=== PATIENT | female | born 1940 | race Caucasian/White ===

== ENCOUNTER → 2018-07-20 | Outpatient (CLI) | payer OTHER ==
[~2018-07-20] MED LIST: ACYCLOVIR 200200 MG; ACYCLOVIR 200200 MG PO; ADULT LOW DOSE81 MG PO; AMARYL2 MG PO; AMLODIPINE BESYL5 MG PO; ATENOLOL 25 MG25 M1 PO; ATIVAN0.5 MG PO; BIOTIN2500 MCG PO; CARVEDILOL12.5 MG PO; CARVEDILOL6.25 MG PO; COZAAR 50 MG TA50 M2 PO; DICLOFENAC SODI75 MG PO; FLEXERIL PO; GLUCOPHAGE500 MG PO; HYDROCODONE-AP1 EAC6 PO; Iron PO; KLOR-CON 1010 MEQ PO; LASIX 20 MG TAB20 MG PO; LASIX 40 MG TAB40 M2 PO; LEVEMIR SUBQ; LEVOTHROID75 MCG PO; LEVOTHYROXINE 0.1 MG PO; LEVOTHYROXINE0.05 MG PO; LIPITOR40 MG PO; METFORMIN HCL500 MG PO; PIOGLITAZONE15 MG PO; PRAVACHOL40 MG PO; PRAVASTATIN SOD40 MG PO; PROBIOTIC1 EAC1 PO; ULTRAM 50MG TAB50 MG; VITAMIN B-12500 MCG PO; VITAMIN D1000 UNI1 PO; VITAMIN E1000 UNIT PO; Vitamin B-12 PO; Vitamin D3 PO; diclofenac PO
== END ==
LOC: M.RAD 13:14
DX: Z12.31 Encounter for screening mammogram for malignant neoplasm of breast (principal)

== ENCOUNTER → 2019-02-24 | Outpatient (CLI) | payer OTHER | LOC: M.LAB 04:33 | PROVIDERS: Student in an Organized Health Care Education/Training Program | DX: E87.6 Hypokalemia (principal); E11.9 Type 2 diabetes mellitus without complications ==

== ENCOUNTER 2019-04-09 22:25 | Emergency (ER) | payer OTHER ==
[~2019-04-09] VITALS: Ht 165.1 cm; Wt 68.0 kg
[2019-04-09] MEDS ORDERED: SYNTHROID75 MCG PO (22:43)
[2019-04-09] MEDS ORDERED: TRAMADOL 50 MG50 MG PO (22:44)
[2019-04-09] MEDS ORDERED: AMARYL2 MG PO (22:45)
[2019-04-09] MEDS ORDERED: KLOR-CON 1010 MEQ PO (22:45)
[2019-04-09] MEDS ORDERED: ACYCLOVIR 400400 MG PO (22:46)
[2019-04-09 23:18] LABS: ABSOLUTE BASOPHILS 0.1 thou/uL (0.0-0.2); ABSOLUTE EOSINOPHILS 0.1 thou/uL (0.0-0.7); ABSOLUTE LYMPHOCYTES 1.8 thou/uL (0.8-5.3); ABSOLUTE MONOCYTES 0.6 thou/uL (0.0-1.2); ABSOLUTE NEUTROPHILS 3.8 thou/uL (1.6-8.1); BASOPHILS 1.5 %; EOSINOPHILS 2.3 %; HEMATOCRIT 33.5 % (37.0-47.0); HEMOGLOBIN 11.5 gm/dL (12.0-15.0); LYMPHOCYTES 28.4 %; MCHC 34.2 g/dL (28.0-37.0); MCV 93.7 fL (80.0-100.0); MONOCYTES 8.9 %; MPV 9.8 fl. (7.2-11.1); NUCLEATED RBCS 0 /100WBC; PLATELET COUNT* 193 thou/uL (150-400); POLYS 58.9 %; RBC 3.58 mil/uL (4.20-5.00); RDW-CV 12.2 % (10.5-14.5); WBC 6.4 thou/uL (4.0-11.0)
[2019-04-09 23:27] LABS: ANION GAP 9 mmol/L (7-16); BUN 46 mg/dL (7-18); CALCIUM 9.1 mg/dL (8.5-10.1); CHLORIDE 104 mmol/L (98-107); CO2 27 mmol/L (21-32); CREATININE 1.9 mg/dL (0.6-1.3); GLUCOSE 101 mg/dL (70-99); POTASSIUM 4.8 mmol/L (3.5-5.1); SODIUM 140 mmol/L (136-145)
[2019-04-09 23:28] LABS: INR 1.1; PROTIME 10.9 Seconds (9.20-11.50)
[2019-04-09 23:37] LABS: ALBUMIN 3.6 g/dL (3.4-5.0); ALKALINE PHOSPHATASE 80 U/L (46-116); NT-PRO BRAIN NAT PEPTIDE 3878 pg/mL (<300); SGOT 19 U/L (15-37); SGPT 25 U/L (30-65); TOTAL BILIRUBIN 0.4 mg/dL (<0.1-1.0); TOTAL PROTEIN 6.9 g/dL (6.4-8.2); TROPONIN-I LEVEL <0.06 ng/mL (<0.06)
[2019-04-09 23:57] LABS: URINE BILIRUBIN NEGATIVE (Negative); URINE BLOOD NEGATIVE (Negative); URINE CLARITY CLEAR; URINE COLOR YELLOW; URINE GLUCOSE-RANDOM NEGATIVE (Negative); URINE KETONES NEGATIVE (Negative); URINE LEUKOCYTES-REFLEX 1+ (Negative); URINE NITRITE-REFLEX NEGATIVE (Negative); URINE PROTEIN NEGATIVE (Negative); URINE UROBILINOGEN 0.2 E.U./dl (0.2-1.0)
[2019-04-10 00:03] LABS: CASTS None Seen /LPF (None Seen); CRYSTALS None Seen /LPF (None Seen); MUCUS 0-3 Light strn/LPF (None Seen); SQUAMOUS 0-3 Few /LPF (0-3); TRANSITIONAL EPITHEL CELL 0-3 Few /LPF (None Seen); URINE RBC 0-2 Rare /HPF (0-2); WBC CLUMPS Few (None Seen)
[2019-04-10] MEDS ORDERED: CLONIDINE0.1 PO (00:43)
[2019-04-10] MEDS ORDERED: BACTRIM DS TAB1 EACH PO (00:53)
[2019-04-10 00:55] VITALS: BP 170/77
--- NOTE | 2019-04-11 12:25 | EKG ---
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 : 1940 Requested By: Rupal Up Order Number: [id number] MD: Randall Solares Measurements Intervals [place] Rate: 59 P: AK: QRS: -14 QRSD: 135 T: 88 QT: 441 QTc: 437 Interpretive Statements sinus rhythm with first degree block Left bundle branch block Baseline wander in lead(s) V3,V4,V5 Compared to ECG 07/17/2015 15:04:53 Left bundle-branch block now present Myocardial infarct finding no longer present Electronically Signed On 04-11-2019 12:25:28 CDT by Randall Solares [email or web address] <ELECTRONICALLY SIGNED> By: Randall Solares MD, [facility] 04/11/19 1225 2240 2240 Randall Solares MD, [facility] /EPI
== END 2019-04-10 00:56 | disposition home or self-care (01) ==
LOC: M.ERS 22:25
PROVIDERS: Emergency Medicine
DX: I10 Essential (primary) hypertension (principal); N39.0 Urinary tract infection, site not specified; E11.9 Type 2 diabetes mellitus without complications; M79.7 Fibromyalgia; M46.90 Unspecified inflammatory spondylopathy, site unspecified; E78.00 Pure hypercholesterolemia, unspecified; Z90.12 Acquired absence of left breast and nipple; Z91.041 Radiographic dye allergy status; Z88.8 Allergy status to other drugs, medicaments and biological substances

== ENCOUNTER → 2019-07-01 | Outpatient (CLI) | payer OTHER ==
[~2019-07-01] MED LIST changes: +ACYCLOVIR 400400 MG PO; +BACTRIM DS TAB1 EACH PO; +CLONIDINE0.1 PO; +SYNTHROID75 MCG PO; +TRAMADOL 50 MG50 MG PO
== END ==
LOC: M.ULTRA 10:53
DX: I12.9 Hypertensive chronic kidney disease with stage 1 through stage 4 chronic kidney disease, or unspecified chronic kidney disease (principal); N18.4 Chronic kidney disease, stage 4 (severe); E11.22 Type 2 diabetes mellitus with diabetic chronic kidney disease; Z79.4 Long term (current) use of insulin

== ENCOUNTER → 2019-07-05 | Outpatient (CLI) | payer OTHER ==
[2019-07-05 13:40] LABS: ALBUMIN 3.5 g/dL (3.4-5.0); CALCIUM 8.6 mg/dL (8.5-10.1); CREATININE 1.8 mg/dL (0.6-1.3); POTASSIUM 4.8 mmol/L (3.5-5.1); TOTAL BILIRUBIN 0.5 mg/dL (<0.1-1.0); TOTAL PROTEIN 6.7 g/dL (6.4-8.2)
[2019-07-08 10:14] LABS: ANA INTERPRETATION Negative (Negative); COMPLEMENT-C4 14 mg/dL (14-44); GLOMERULR BASEM MEMBRN AB 3 units (0-20); GLYCOHEMOGLOBIN (HGB A1C) 7.4 % (4.8-5.6); HEPATITIS B SURFACE AG Negative (Negative)
[2019-07-08 10:14] LABS: CREATININE CLEARANCE 0 mL/min (88-128); URINE CREATININE 37.1 mg/dL (Not Estab.); URINE CREATININE (GM/24H) 1 mg/24 hr (800-1800)
[2019-07-08 19:10] LABS: URINE PROTEIN 0 mg/24 hr (30-150); URINE PROTEIN (MG/DL) 5.2 mg/dL (Not Estab.)
[2019-07-08 19:10] LABS: GLOBULIN TOTAL 2.8 g/dL (2.2-3.9); M-SPIKE Not Observed g/dL (Not Observed)
== END ==
LOC: M.LAB 12:55
PROVIDERS: Internal Medicine Nephrology
DX: I25.10 Atherosclerotic heart disease of native coronary artery without angina pectoris (principal); I12.9 Hypertensive chronic kidney disease with stage 1 through stage 4 chronic kidney disease, or unspecified chronic kidney disease; N18.4 Chronic kidney disease, stage 4 (severe)

== ENCOUNTER → 2019-08-09 | Outpatient (CLI) | payer OTHER | LOC: M.RAD 14:17 | DX: Z12.31 Encounter for screening mammogram for malignant neoplasm of breast (principal) ==

== ENCOUNTER → 2020-08-01 | Outpatient (CLI) | payer MEDICARE | LOC: M.RAD 12:32 | PROVIDERS: ATTEND Internal Medicine | DX: Z12.31 Encounter for screening mammogram for malignant neoplasm of breast (principal) ==

== ENCOUNTER → 2021-07-12 | Outpatient (CLI) | payer OTHER | LOC: M.RAD 10:56 | PROVIDERS: ATTEND Registered Nurse | DX: Z12.31 Encounter for screening mammogram for malignant neoplasm of breast (principal); I48.19 Other persistent atrial fibrillation; N64.89 Other specified disorders of breast; J84.10 Pulmonary fibrosis, unspecified; J98.4 Other disorders of lung ==

== ENCOUNTER → 2021-07-31 | Outpatient (CLI) | payer OTHER ==
--- NOTE | 2021-07-31 17:21 | 2DMMODE ---
[place] [address] 2 D/M-MODE ECHOCARDIOGRAM Name: AALIYAH TRAYLOR Room: [facility]#: [id number] Admission: 07/31/21 Attend Phys: Nany Perez RN Discharge: Date of : 40 Date of Service: 07/31/21 1721 Report #: [id number] THIS REPORT FOR: cc: Emmy Meyers Angela Jo RNP Liston, Michael J. MD [facility] ~ APPROVED REPORT Study performed: 07/31/2021 10:24:47 EXAM: Comprehensive 2D, Doppler, and color-flow Echocardiogram Patient Location: Out-Patient BSA: 1.75 HR: 64 bpm BP: 126/70 mmHg Rhythm: Atrial Fibrillation Other Information Study Quality: Good Indications CAD 2D Dimensions IVSd: 10.82 (7-11mm) LVOT Diam: 20.43 (18-24mm) LVDd: 51.34 mm PWd: 10.32 (7-11mm) Ascending Ao: 27.64 (22-36mm) LVDs: 34.19 (25-40mm) Aortic Root: 32.15 mm Volumes Left Atrial Volume (Systole) LA ESV Index: 26.30 mL/m2 Aortic Valve AoV Peak Efrain.: 1.27 m/s AO Peak Gr.: 6.46 mmHg LVOT Max P.08 mmHg AO Mean Gr.: 4.10 mmHg LVOT Mean P.55 mmHg LVOT Max V: 0.52 m/s AO V2 VTI: 30.83 cm LVOT Mean V: 0.34 m/s DAVID (VTI): 1.36 cm2 LVOT V1 VTI: 12.77 [place] [address] 2 D/M-MODE ECHOCARDIOGRAM Name: AALIYAH TRAYLOR Room: [facility]#: [id number] Admission: 07/31/21 Attend Phys: Nany Perez RN Discharge: Date of : 40 Date of Service: 07/31/21 1721 Report #: [id number] E/A Ratio: 2.28 MV Decel. Time: 120.17 ms MV E Max Efrain.: 1.06 m/s MV PHT: 34.85 ms MVA (PHT): 6.31 cm2 TDI E/Lateral E': 9.64 E/Medial E': 11.78 Medial E' Efrain.: 0.09 m/s Lateral E' Efrain.: 0.11 m/s Pulmonary Valve PV Peak Efrain.: 0.77 m/s PV Peak Gr.: 2.39 mmHg Tricuspid Valve RAP Estimate: 5.00 mmHg TR Peak Gr.: 30.12 mmHg RVSP: 35.12 mmHg PA Pressure: 35.12 mmHg Left Ventricle The left ventricle is normal size. There is global hypokinesis with akinesis of the basal inferior wall. Mild concentric left ventricular hypertrophy. Left ventricular ejection fraction is moderate to severely decreased. LVEF is 30-35%. This study is not technically sufficient to allow evaluation of the LV diastolic function due to atrial fibrillation. Right Ventricle The right ventricle is normal size. The right ventricular systolic function is normal. Atria Left atrium is mildly dilated. The right atrium size is normal. Aortic Valve Aortic valve is thickened but has adequate excursion. No aortic regurgitation is present. There is no aortic valvular stenosis. Mitral Valve Mitral valve leaflets are mildly thickened. Moderate mitral regurgitation. No evidence of mitral valve stenosis. Tricuspid Valve The tricuspid valve is normal in [place] [address] 2 D/M-MODE ECHOCARDIOGRAM Name: AALIYAH TRAYLOR Room: [facility]#: [id number] Admission: 07/31/21 Attend Phys: Nany Perez RN Discharge: Date of : 40 Date of Service: 07/31/21 1721 Report #: [id number] regurgitation. Pulmonic Valve The pulmonary valve is normal in structure. There is no pulmonic valvular regurgitation. Great Vessels The aortic root is normal in size. IVC is normal in size and collapses >50% with inspiration. Pericardium There is no pericardial effusion. <Conclusion> The left ventricle is normal size. Mild concentric left ventricular hypertrophy. Left ventricular ejection fraction is moderate to severely decreased. LVEF is 30-35%. This study is not technically sufficient to allow evaluation of the LV diastolic function due to atrial fibrillation. There is global hypokinesis with akinesis of the basal inferior wall. Left atrium is mildly dilated. Mitral valve leaflets are mildly thickened. Moderate mitral regurgitation. Mild tricuspid regurgitation. IVC is normal in size and collapses >50% with inspiration. <ELECTRONICALLY SIGNED> By: José Miguel Gay MD, FACC 07/31/211720 20 20 José Miguel Gay MD, FACC /INF
== END ==
LOC: M.CRD 09:54
PROVIDERS: ATTEND Registered Nurse
DX: I08.3 Combined rheumatic disorders of mitral, aortic and tricuspid valves (principal); I25.10 Atherosclerotic heart disease of native coronary artery without angina pectoris

== ENCOUNTER → 2021-08-06 | Outpatient (CLI) | payer OTHER ==
--- NOTE | 2021-08-06 14:40 | CARDNUC ---
[place] [address] CARDIAC NUCLEAR IMAGING REPORT Name: AALIYAH TRAYLOR Room: [facility]#: [id number] Admission: 08/06/21 Attend Phys: José Miguel Gay, Discharge: Date of : 40 Date of Service: 08/06/21 1440 Report #: [id number] THIS REPORT FOR: cc: Emmy Meyers Angela Jo RNP Liston, Michael J. MD [facility] ~ APPROVED REPORT Study performed: 08/06/2021 11:11:47 Exam: Nuclear Stress Test Indication: CAD Patient Location: Out-Patient Stress Nurse: Yee Reed RN Ht: 5 ft 6 in Wt: 150 lbs BSA: 1.77 m2 BMI: 24.20 Medical History Medical History: Atrial Fibrillation, CAD non obstructive, Diabetes, HTN Medications: amiodarone, eliquis, carvedilol, lasox, losartan Allergies: iodine Cardiac Risk Factors: Age, DM, FHX of CAD, HTN Exercise History: Sedentary Meds Held (24 hrs): carvedilol Stress Test Details Stress Test: Pharmacologic stress testing performed using 0.4 mg of regadenoson per 5 mL given IV over 10 seconds. Reason for pharmacologic stress test: a fib. HR Resting HR: 88 bpm Max Heart Rate (APMHR): 139 bpm Max HR Achieved: 115 bpm Target HR (85% APMHR): 118 bpm % of APMHR: 82 Recovery HR: 103 bpm BP Resting BP: 142/93 mmHg Max BP: 170/98 [place] [address] CARDIAC NUCLEAR IMAGING REPORT Name: AALIYAH TRAYLOR Room: [facility]#: [id number] Admission: 08/06/21 Attend Phys: José Miguel Gay, Discharge: Date of : 40 Date of Service: 08/06/21 1440 Report #: [id number] Resting ECG: Atrial fibrillation with a left bundle branch block Stress ECG: Atrial fibrillation with a left bundle branch block Recovery ECG: Atrial fibrillation with a left bundle branch block Clinical Reason for Termination: Completed protocol The patient tolerated Lexiscan infusion without significant cardiac symptoms. Nurse Comments patient given 60 mg caffeine ivp at conclusion of test for nausea, headache and weakness. taken to radiology per wheelchair Stress ECG Conclusion The baseline twelve-lead EKG shows atrial fibrillation with left bundle branch block. EKGs obtained during and post Lexiscan infusion show atrial fibrillation with left bundle branch block. NM EXAM: Myocardial Perfusion REST/STRESS Resting Data Rest SPECT myocardial perfusion imaging was performed in supine position 30 minutes following the intravenous injection of 10.0 mCi of Tc-99m Sestamibi. Time of rest injection: 09:50 The images were gated to evaluate regional wall motion and calculate left ventricular ejection fraction. Administration Route: IV Administration Site: Right Wrist Pharmacologic Stress Pharmacologic stress test was performed by injecting Regadenoson 0.4 mg IV push followed by the intravenous injection of 35.8 mCi of Tc-99m Sestamibi. Time of stress injection: 11:10 Administration Route: IV Administration Site: Right Wrist Heart Rate at time of stress injection: 111 bpm. Gated Stress SPECT was performed 45 minutes after stress injection. The images were gated to evaluate regional wall motion and calculate left [place] [address] CARDIAC NUCLEAR IMAGING REPORT Name: AALIYAH TRAYLOR Room: [facility]#: [id number] Admission: 08/06/21 Attend Phys: José Miguel Gay, Discharge: Date of : 40 Date of Service: 08/06/21 1440 Report #: [id number] Study Quality Study: Good Artifact: No artifact Study Data At rest, the left ventricular ejection fraction was 43%.. Post stress, the left ventricular ejection was 37%.. TID = 0.99. Perfusion Perfusion images obtained at rest and post Lexiscan stress show a large in size severe intensity defect extending from the base to apex of the inferior inferoseptal wall. No other defects were identified. Wall Motion There is akinesis of the septum and inferior wall extending from base to apex. 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 There was no evidence of residual ischemia. Global LV systolic function appears to be moderately to severely decreased with wall motion abnormalities as outlined above. The study is moderate to high risk based on LV systolic dysfunction in the setting of coronary artery disease consistent with ischemic cardiomyopathy. <Conclusion> The baseline twelve-lead EKG shows atrial fibrillation with left bundle branch block. EKGs obtained during and post Lexiscan infusion show atrial fibrillation with left bundle branch block. <ELECTRONICALLY SIGNED> By: José Miguel Gay MD, FACC 08/06/21 1440 1440 1440 José Miguel Gay MD, FACC /INF
== END ==
LOC: M.NUC 09:22
PROVIDERS: ATTEND Internal Medicine Cardiovascular Disease
DX: I25.10 Atherosclerotic heart disease of native coronary artery without angina pectoris (principal)

== ENCOUNTER → 2021-08-08 | Outpatient (CLI) | payer OTHER ==
[2021-08-08] VITALS (8 sets, daily range): BP systolic 121–154; BP diastolic 41–77
[~2021-08-08] MED LIST changes: +AMIODARONE HCL400 MG PO; +ELIQUIS2.5 MG PO; +TRAZODONE HCL50 MG PO
--- NOTE | 2021-08-08 16:20 | NUR ---
dosed pt with zofran per dr Gay. pt immediatley started to have redness and swelling in the arm above the iv site to just above antecubetal area. Dr Gay ordered benadryl 50mg iv push. pt had relief of symptoms within minutes.
--- NOTE | 2021-08-10 10:18 | CARD ---
[place] [id number] CARDIAC CATH REPORT Name: AALIYAH TRAYLOR Room: [facility]#: [id number] Admission: 08/08/21 Attend Phys: José Miguel Gay MD Discharge: Date of : 40 Report #: [id number] THIS REPORT FOR: cc: Emmy Meyers Angela Jo RNP Liston, Michael J. MD [facility] ~ cc: FORREST Urbina DATE OF SERVICE: 08/08/2021 PROCEDURE: DC cardioversion. INDICATION: Persistent atrial fibrillation. DESCRIPTION OF PROCEDURE: After informed consent was obtained, the patient was brought to the cardiac holding area. The patient was given 2 mg of intravenous Versed and 50 mcg of intravenous fentanyl for conscious sedation. After the patient was adequately sedated, she was cardioverted from atrial fibrillation to sinus bradycardia with a single biphasic shock of 300 joules. The patient tolerated the procedure well and without complication. IMPRESSION: 1. Persistent atrial fibrillation. 2. Successful direct current cardioversion to normal sinus rhythm. NOTE: The patient received some IV Zofran prior to cardioversion for some nausea. She had fairly sudden onset redness and burning in the arm for which she received an additional 50 mg of IV Benadryl with resolution of her symptoms. This was felt to possibly represent a local allergic reaction. <ELECTRONICALLY SIGNED> By: José Miguel Gay MD, FAC 08/10/21 1018 1037 [facility] Madhavi Gay MD, [facility] /nt
== END | disposition home or self-care (01) ==
LOC: M.CL 09:32
PROVIDERS: ATTEND Internal Medicine Cardiovascular Disease
DX: I48.0 Paroxysmal atrial fibrillation (principal); I48.92 Unspecified atrial flutter; I10 Essential (primary) hypertension; Z98.890 Other specified postprocedural states; Z79.899 Other long term (current) drug therapy; Z79.01 Long term (current) use of anticoagulants; Z91.040 Latex allergy status; Z88.8 Allergy status to other drugs, medicaments and biological substances

== ENCOUNTER → 2021-09-25 | Outpatient (CLI) | payer OTHER ==
[2021-09-25 10:01] LABS: HEMATOCRIT 35.7 % (37.0-47.0); HEMOGLOBIN 11.7 gm/dL (12.0-15.0); MCH 31.6 pg (26.0-34.0); MCHC 32.7 g/dL (28.0-37.0); MCV 96.8 fL (80.0-100.0); MPV 9.4 fl. (7.2-11.1); RBC 3.68 mil/uL (4.20-5.00); RDW-CV 13.3 % (10.5-14.5); WBC 4.6 thou/uL (4.0-11.0)
[2021-09-25 11:13] LABS: CALCIUM 8.1 mg/dL (8.5-10.1); CREATININE 2.1 mg/dL (0.6-1.3); POTASSIUM 4.4 mmol/L (3.5-5.1)
== END ==
LOC: M.LAB 09-24 16:00
PROVIDERS: ATTEND Internal Medicine Cardiovascular Disease
DX: I48.91 Unspecified atrial fibrillation (principal); I25.10 Atherosclerotic heart disease of native coronary artery without angina pectoris; I10 Essential (primary) hypertension; I34.0 Nonrheumatic mitral (valve) insufficiency; E11.9 Type 2 diabetes mellitus without complications; E78.2 Mixed hyperlipidemia

== ENCOUNTER → 2021-10-15 | Outpatient (CLI) | payer OTHER ==
[~2021-10-15] VITALS: Ht 165.1 cm; Wt 67.6 kg
[2021-10-15] VITALS (9 sets, daily range): BP systolic 125–160; BP diastolic 68–99
[~2021-10-15] MED LIST changes: +C-10001000 MG PO; +COREG6.25 MG PO; +CRESTOR20 MG PO; +LASIX 40 MG TAB40 MG PO; +LEVEMIR100 UNIT/1 SUBQ; +SYNTHROID100 MC1 PO
[2021-10-15 10:32] LABS: HEMATOCRIT 36.9 % (37.0-47.0); HEMOGLOBIN 12.2 gm/dL (12.0-15.0); MCH 31.9 pg (26.0-34.0); MCHC 33.2 g/dL (28.0-37.0); MCV 96.1 fL (80.0-100.0); MPV 10.3 fl. (7.2-11.1); RBC 3.84 mil/uL (4.20-5.00); RDW-CV 13.3 % (10.5-14.5); WBC 5.2 thou/uL (4.0-11.0)
[2021-10-15 10:45] LABS: APTT 28.4 Seconds (25.0-31.3); INR 1.2; PROTIME 12.4 Seconds (9.20-11.50)
[2021-10-15 11:32] LABS: ALBUMIN 3.4 g/dL (3.4-5.0); CALCIUM 8.5 mg/dL (8.5-10.1); CREATININE 1.9 mg/dL (0.6-1.3); POTASSIUM 4.8 mmol/L (3.5-5.1); TOTAL BILIRUBIN 0.7 mg/dL (<0.1-1.0); TOTAL PROTEIN 6.4 g/dL (6.4-8.2)
--- NOTE | 2021-10-15 13:13 | EKG ---
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 10/15/21 1313 1039 1039 José Miguel Gay MD, FAC /EPI
--- NOTE | 2021-10-15 14:39 | CARD ---
[address] [address] CARDIAC CATH REPORT Name: AALIYAH TRAYLOR [facility]#: [id number] Admission: 10/15/21 Attend Phys: José Miguel Gay MD Discharge: Date of : 40 Report #: [id number] THIS REPORT FOR: cc: Emmy Meyers Angela Jo RNP Liston, Michael J. MD [facility] ~ APPROVED REPORT Study performed: 10/15/2021 11:13:20 Patient Details Patient Status: Out-Patient Room #: The patient is a 81 year-old female Event Personnel Ricci Hector RTR Monitor, Emmy Garcia Subedi, Sujita RN RN, José Miguel Gay Office Administration, José Miguel Dominguez Lumber Inspector Procedures Performed Left Heart Cath w/or w/o Coronaries [id number] [facility] PTCA Single Vessel RCA [id number] [facility] Admission/Lab Medications/Medications given during procedure Solumedrol IV 100 mg, Solumedrol IV 100 mg, Zofran (Ondansetron) IV 4 mg, Fentanyl IV 25 mcg, Midazolam (Versed) IV 1 mg, Lidocaine Subcut 20 ml, Heparin IV 7000 units Procedure Narrative The patient was brought electively to the Cardiac Catheterization Laboratory and was prepped and draped in a sterile manner. The right femoral was infiltrated with 2% Lidocaine subcutaneous anesthesia. IV conscious sedation was used throughout procedure with appropriate monitoring and was performed in the presence of a registered nurse who was an independent trained observer other than the physician performing the procedure. A Aurora 6 FR sheath was inserted into the right femoral artery. Coronary angiography was performed using coronary diagnostic catheters. The right coronary system was accessed and visualized with a Diagnostic JR4 6Fr catheter. The left coronary system was accessed and visualized with a Diagnostic JL4 6Fr catheter. The left ventricle was accessed and visualized with a Diagnostic JR4 6Fr catheter. Left ventricular/Aortic Valve gradient assessed via catheter pullback. Pre-[place] [address] CARDIAC CATH REPORT Name: KYMBERLYAALIYAH VEGA Room: [facility]#: [id number] Admission: 10/15/21 Attend Phys: José Miguel Gay MD Discharge: Date of : 40 Report #: [id number] performed . Closure device was deployed with a 6 Fr Angioseal. The patient tolerated the procedure well and there were no complications associated with the procedure. There was no hematoma. Intraoperative Conscious Sedation Sedation start time: 1146 Case end Time: 1240 Fentanyl 25.0 mcg Versed 1 mg Fluoro Time: 5.1 minutes Dose: DAP 00692 cGycm2 916.93 mGy Contrast Type and Amount: Visipaque 145 mL Coronary Angiography The patient's coronary anatomy is right dominant. Diagnostic Cath Left Main The left main is essentially a common os. LAD The LAD is heavily calcified proximally with 40% tubular narrowing. The mid vessel is calcified with 30 to 40% narrowing. There is a focal 70% narrowing in the distal LAD. Diagonal 1 The first diagonal branch has a 70% ostial narrowing. Circumflex The circumflex is moderately calcified and minimally narrowed proximally. The circumflex terminates in a large branched obtuse marginal branch that is mildly plaqued. Significant collaterals are noted to the distal right coronary artery. OM1 The first obtuse marginal branch as outlined above is a large branch vessel that is minimally plaqued. Right Coronary The right coronary artery is a 50% ostial narrowing followed by subtotal occlusion in its midportion. There is slow flow distally and competitive flow identified secondary to left to right collaterals. R PDA The right PDA appears free of significant disease. RPLV The right posterior lateral LV branch fills faintly by collaterals and appears to be free of significant disease. Left Ventriculography Left Ventriculography was not performed. Hemodynamics The aortic pressure is 112/64 mmHg with a mean of 41 mmHg. The left ventricular pressure is 121/4 mmHg with a mean of mmHg. The left ventricular end diastolic pressure is 9 [place] [address] CARDIAC CATH REPORT Name: AALIYAH TRAYLOR Room: [facility]#: [id number] Admission: 10/15/21 Attend Phys: José Miguel Gay MD Discharge: Date of : 40 Report #: [id number] PCI Technique Lesion Anticoagulation was achieved with Heparin. 7000 Units A 6FR JCR 4 SH 100CM Guide Catheter was used to engage the Right ostium. A IG: BMW 190cm Interventional Guidewire was used to cross the lesion. Conclusion 1. 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 Attempts to cross with a wire were unsuccessful. There is significant [id number]-[id number] collateral filling the distal vessel. 2. Moderate disease throughout the LAD as outlined above. Distally there is a 70% narrowing. 3. Normal left ventricular end-diastolic pressure. Recommendations 1. Continue aggressive medical management and risk factor modification. <ELECTRONICALLY SIGNED> By: José Miguel Gay MD, FACC 10/15/21 1439 1439 1439Micisatu Gay MD, FACC /INF
== END | disposition home or self-care (01) ==
LOC: M.CL 09:40
PROVIDERS: ATTEND Internal Medicine Cardiovascular Disease
DX: I25.10 Atherosclerotic heart disease of native coronary artery without angina pectoris (principal); I25.5 Ischemic cardiomyopathy; I10 Essential (primary) hypertension; E11.9 Type 2 diabetes mellitus without complications; E78.00 Pure hypercholesterolemia, unspecified; M19.90 Unspecified osteoarthritis, unspecified site; M79.7 Fibromyalgia; Z98.890 Other specified postprocedural states; Z79.899 Other long term (current) drug therapy; Z20.822 Contact with and (suspected) exposure to COVID-19; Z85.3 Personal history of malignant neoplasm of breast; Z79.01 Long term (current) use of anticoagulants; Z91.041 Radiographic dye allergy status; Z88.8 Allergy status to other drugs, medicaments and biological substances